=== PATIENT | male | born 1960 ===

== ENCOUNTER 2025-08-30 07:30 | Inpatient (IN) | payer OTHER ==
[~2025-08-30] VITALS: Ht 172.7 cm; Wt 69.9 kg
[2025-08-30] MEDS ORDERED: TAMS0.4C PO (08:48)
[2025-08-30 08:51] VITALS: BP 123/75
[2025-08-30 09:00] LABS: URINE APPEARANCE Clear; URINE BILIRRUBIN Negative (NEGATIVE); URINE BLOOD Small; URINE COLOR Yellow; URINE GLUCOSE Negative (NEGATIVE); URINE KETONE Negative (NEGATIVE); URINE LEUKOCYTE Negative; URINE NITRATE Negative; URINE PROTEIN Negative (NEGATIVE); URINE UROBILINOGEN 0.2 E.U./dl
[2025-08-30 09:07] LABS: URINE RBC 6.0 uL (0.0-20.8); URINE WBC 1.8 uL (0.0-23.2)
[2025-08-30 09:08] LABS: URINE BACTERIA 0 uL (0.0-1933); URINE CAST 0.00 uL (0.0-1.40); URINE EPITHELIAL CELLS 0.1 uL (0.0-38.8)
[2025-08-30 09:11] LABS: BASO % 1.6 % (0.1-1.2); EOS # 0.14 (0.04-0.54); EOS % 4.4 % (0.7-7.0); LYMPH # 0.97 (1.18-3.74); LYMPH % 30.2 % (19.3-53.1); MEAN PLATELET VOLUME 9.70 fl (9.4-12.4); MONO # 0.34 (0.24-0.82); MONO % 10.6 % (4.7-12.5); NEUT # 1.71 (1.56-6.13); NEUT % 53.2 % (34.0-71.1); RED CELL DISTRIBUTION WIDTH 12.2 % (11.6-14.4)
[2025-08-30 09:36] LABS: INR 0.96
[2025-08-30 10:13] LABS: BUN CREA RATIO 11.0 (7.0-25.0); CREATININE SERUM 0.88 mg/dL (0.70-1.30); GFR 86.64; GLUCOSE FASTING 99.0 mg/dL (65-100); OSMOLALITY SERUM 282.0 MOSM/KG (275-295)
[2025-09-01] MEDS ORDERED: ENOXAPARIN SODIUM 40 MG/0.4 ML SYRINGE SUBCUTANEO ONE ×2 (07:18→09:00)
[2025-09-01] MEDS ORDERED: BUPIVACAINE HCL/MPF 0.5% 30ML VIAL ONE (07:18)
[2025-09-01] MEDS ORDERED: HEMOSTATIC MATRIX 1 KIT KIT TOP ONE ×2 (08:38→09:00)
[2025-09-01] MEDS ORDERED: SURGIFLO APPLICATOR 1 EACH APPL TOP ONE ×2 (08:38→09:00)
[2025-09-01] MEDS ORDERED: CEFAZOLIN SODIUM 1,000 MG in 0.9 % SODIUM CHLORIDE 50 ML IV ONE (09:00)
[2025-09-01] MEDS ORDERED: SUGAMMADEX SODIUM 200 MG/2 ML VIAL IV ONE (09:17)
[2025-09-01] MEDS ORDERED: MORPHINE SULFATE 4 MG/ML CARTRIDGE IV PRN (10:15)
[2025-09-01] MEDS ORDERED: RINGERS SOLUTION,LACTATED 1,000 ML IV SCH (10:15)
[2025-09-01] MEDS ORDERED: OxyCODONE HCL 5 MG TABLET (ROXICODONE) PO PRN (10:15)
[2025-09-01] MEDS ORDERED: ONDANSETRON HCL 2 MG/ML VIAL IV PRN (10:15)
[2025-09-01 16:37] VITALS: BP 98/59; O2SAT 95
[2025-09-01] MEDS ORDERED: GABAPENTIN 300 MG CAPSULE PO SCH (17:00)
[2025-09-01] MEDS ORDERED: CEFAZOLIN SODIUM 1,000 MG VIAL IV SCH (21:00)
[2025-09-01] MEDS ORDERED: FAMOTIDINE/PF 20 MG/2 ML VIAL IV SCH (21:00)
[2025-09-01] MEDS ORDERED: DOCUSATE SODIUM 100MG CAP PO SCH (21:00)
[2025-09-02 00:37] VITALS: BP 100/60; O2SAT 97
[2025-09-02 06:30] LABS: BASO % 0.3 % (0.1-1.2); EOS # 0.02 (0.04-0.54); EOS % 0.3 % (0.7-7.0); LYMPH # 0.56 (1.18-3.74); LYMPH % 8.4 % (19.3-53.1); MEAN PLATELET VOLUME 10.40 fl (9.4-12.4); MONO # 0.67 (0.24-0.82); MONO % 10.0 % (4.7-12.5); NEUT # 5.38 (1.56-6.13); NEUT % 80.7 % (34.0-71.1); RED CELL DISTRIBUTION WIDTH 11.9 % (11.6-14.4)
[2025-09-02 07:01] LABS: BUN CREA RATIO 11.0 (7.0-25.0); CREATININE SERUM 0.98 mg/dL (0.70-1.30); GFR 76.52; GLUCOSE FASTING 97.0 mg/dL (65-100); OSMOLALITY SERUM 275.0 MOSM/KG (275-295)
[2025-09-02 07:30] VITALS: BP 101/49; O2SAT 97
[2025-09-02] MEDS ORDERED: ENOXAPARIN SODIUM 40 MG/0.4 ML SYRINGE SUBCUTANEO SCH (09:00)
== END 2025-09-02 18:00 | disposition home or self-care (01) | DRG 718 ==
LOC: O/R 09-01 06:00 → SURH 09-01 07:30
PROVIDERS: ADMIT Urology; ATTEND Urology
PROC: 8E0W4CZ Robotic Assisted Procedure of Trunk Region, Percutaneous Endoscopic Approach (ICD-10-PCS; 2025-09-01)
PROC: 0VB04ZZ Excision of Prostate, Percutaneous Endoscopic Approach (ICD-10-PCS; principal; 2025-09-01 12:30)
DX: N40.1 Benign prostatic hyperplasia with lower urinary tract symptoms (principal)
CPT/HCPCS: 55867; S2900